=== PATIENT | female | born 1995 | race Two or more races ===

== ENCOUNTER 2023-01-30 19:59 | Emergency (ER) | payer OTHER ==
[~2023-01-30] VITALS: Ht 170.2 cm; Wt 66.7 kg
[2023-01-30] MEDS ORDERED: METRONIDAZOLE500 MG PO (20:11)
[2023-01-30] MEDS ORDERED: MEDROLPACK PO (23:00)
[2023-01-30] MEDS ORDERED: BENADRYL25 MG PO (23:00)
== END 2023-01-30 23:20 | disposition home or self-care (01) ==
LOC: ER 19:59
DX: T78.49XA Other allergy, initial encounter (principal); X58.XXXA Exposure to other specified factors, initial encounter

== ENCOUNTER 2023-08-06 20:03 | Emergency (ER) | payer OTHER ==
[~2023-08-06] VITALS: Ht 170.2 cm; Wt 66.7 kg
[~2023-08-06 20:03] MED LIST: BENADRYL25 MG PO; MEDROLPACK PO; METRONIDAZOLE500 MG PO
[2023-08-06 21:57] LABS: HEMATOCRIT 40.2 % (36.0-45.00); HEMOGLOBIN 13.7 g/dL (12.0-15.00); MEAN CELL VOLUME 93.4 fL (80.00-100.00); MEAN CORPUSCULAR HEMOGLOBIN 31.9 pg (27.00-32.0); MEAN CORPUSCULAR HGB CONC 34.1 g/dl (32.0-36.0); PLATELET COUNT 333 K/uL (150-450); RED CELL DISTRIBUTION WIDTH 12.7 % (11.5-14.5)
[2023-08-06 22:03] LABS: ALBUMIN 4.8 gm/dL (3.4-5.0); ALKALINE PHOSPHATASE 63 U/L (50-136); ALT/SGPT 19 U/L (12-78); AMYLASE 41 U/L (25-115); ANION GAP 11 (10.0-20.0); AST/SGOT 10 U/L (15-37); BILIRUBIN TOTAL 1.63 mg/dL (0.3-1.2); BLOOD UREA NITROGEN 13 mg/dL (7-18); BUN CREA RATIO 19 (7.0-25.0); CALCIUM 9.5 mg/dL (8.5-10.1); CARBON DIOXIDE 27 mEq/L (21-32); CHLORIDE 105 mmol/L (98-107); CREATININE SERUM 0.68 mg/dL (0.55-1.02); GFR 102.29; GLOBULINA 3.8 G/DL (2.4-3.5); GLUCOSE FASTING 134 mg/dL (65-100); LIPASE 26 U/L (13-75); OSMOLALITY SERUM 280 MOSM/KG (275-295); POTASSIUM 3.87 mEq/L (3.5-5.1); SODIUM 139 mmol/L (136-145); TOTAL PROTEIN 8.6 gm/dL (6.4-8.2)
[2023-08-06 22:06] LABS: HCG QUANTITATIVE < 1 mUI/mL (1-3)
== END 2023-08-06 22:44 | disposition home or self-care (01) ==
LOC: ER 20:03
PROVIDERS: General Practice
DX: K52.9 Noninfective gastroenteritis and colitis, unspecified (principal)

== ENCOUNTER 2024-08-21 06:51 | Emergency (ER) | payer OTHER ==
[~2024-08-21] VITALS: Ht 170.2 cm; Wt 65.8 kg
[2024-08-21] MEDS ORDERED: FAMOTIDINE/PF 20 MG/2 ML VIAL ONE (08:41)
[2024-08-21] MEDS ORDERED: MAG HYDROX/ALUMINUM HYD/SIMETH 30 ML BLIST.PACK PO ONE ×2 (08:41→08:45)
[2024-08-21] MEDS ORDERED: DEXAMETHASONE SODIUM PHOSPHATE 4 MG/ML VIAL ONE (08:41)
[2024-08-21] MEDS ORDERED: FAMOTIDINE/PF 20 MG/2 ML VIAL IV ONE (08:45)
[2024-08-21] MEDS ORDERED: DEXAMETHASONE SODIUM PHOSPHATE 4 MG/ML VIAL IM ONE (08:45)
[2024-08-21] MEDS ORDERED: ONDANSETRON HCL 2 MG/ML VIAL ONE (08:47)
[2024-08-21] MEDS ORDERED: ONDANSETRON HCL 2 MG/ML VIAL IV ONE (09:00)
[2024-08-21 09:16] LABS: HEMATOCRIT 39.2 % (36.0-45.00); HEMOGLOBIN 13.9 g/dL (12.0-15.00); MEAN CELL VOLUME 93.2 fL (80.00-100.00); MEAN CORPUSCULAR HGB CONC 35.5 g/dl (32.0-36.0); PLATELET COUNT 235 K/uL (150-450); RED CELL DISTRIBUTION WIDTH 13.1 % (11.5-14.5)
== END 2024-08-21 09:47 | disposition home or self-care (01) ==
LOC: ER 06:53
PROVIDERS: General Practice
DX: J10.1 Influenza due to other identified influenza virus with other respiratory manifestations (principal); Z20.822 Contact with and (suspected) exposure to COVID-19
CPT/HCPCS: 36415; 96365; 96372; 99282; J1100; J2405; J3490